=== PATIENT | male | born 1980 | race African-American/Black ===

== ENCOUNTER 2019-01-16 06:21 | Day surgery (SDC) | payer OTHER ==
[2019-01-16 07:27] LABS: ADD MAN DIFF? NO
[2019-01-16] MEDS: CEFAZOLIN 2 GM/50 ML (PMX) 50 ML IVPB (07:30)
[2019-01-16] MEDS: SOD CHLORIDE 0.9% 1,000 ML IV (07:30)
[2019-01-16 07:32] LABS: BASOPHILS % 0.4 % (0.0-2.0); EOSINOPHILS # 0.3 10^3/ul (0.0-0.5); EOSINOPHILS % 3.5 % (0.0-7.0); HEMATOCRIT 43.8 % (42.0-52.0); LYMPHOCYTES % 33.8 % (15.0-51.0); MEAN CORPUSCULAR HGB CONC 34.2 g/dl (32.0-37.0); MEAN CORPUSCULAR VOLUME 87.6 fl (82.0-101.0); MEAN PLATELET VOLUME 9.4 fl (7.4-10.4); MONOCYTE # 0.8 10^3/ul (0.3-0.9); MONOCYTES % 8.4 % (0.0-11.0); NEUTROPHIL # 4.8 10^3/ul (1.6-7.5); NEUTROPHILS % 53.5 % (39.0-77.0); PLATELET COUNT 294 10^3/UL (140-415); RED CELL DISTRIBUTION WIDTH 12.6 % (11.5-14.5)
[2019-01-16 07:32] LABS: WHITE BLOOD COUNT 8.9 10^3/ul (4.8-10.8)
[2019-01-16 07:49] LABS: ALANINE AMINOTRANSFERASE 40 IU/L (13-69); ALBUMIN 3.8 g/dl (3.3-4.9); ALBUMIN/GLOBULIN RATIO 1.31; ALKALINE PHOSPHATASE 101 IU/L (42-121); ANION GAP 7 (5-13); ASPARTATE AMINO TRANSFERASE 38 IU/L (15-46); BILIRUBIN,INDIRECT 0.5 mg/dl (0-1.1); BILIRUBIN,TOTAL 0.5 mg/dl (0.2-1.3); BLOOD UREA NITROGEN 11 mg/dl (7-20); CALCIUM 9.1 mg/dl (8.4-10.2); CARBON DIOXIDE 25 mmol/L (21-31); CHLORIDE 109 mmol/L (97-110); CREATININE 0.86 mg/dl (0.61-1.24); Estimated GFR > 60 mL/min (>60); GLUCOSE 93 mg/dl (70-220); SODIUM 141 mmol/L (135-144); TOTAL PROTEIN 6.7 g/dl (6.1-8.1)
[2019-01-16 07:51] LABS: PROTIME 12.3 Sec (11.9-14.9)
[2019-01-16 08:05] LABS: PARTIAL THROMBOPLASTIN TIME 36.4 Sec (23.0-35.0)
[2019-01-16] MEDS ORDERED: FENTAnyl 50 MCG/ML VIAL (09:20)
[2019-01-16] MEDS ORDERED: METOCLOPRAMIDE 10 MG INJ IV (09:30)
[2019-01-16] MEDS ORDERED: MEPERIDINE 25 MG INJ IV (09:30)
[2019-01-16] MEDS ORDERED: ONDANSETRON 4 MG INJ IV (09:30)
[2019-01-16] MEDS ORDERED: FENTAnyl 50 MCG/ML VIAL IV ×2 (09:30)
[2019-01-16] MEDS ORDERED: HYDROmorphONE 1 MG/5 ML IV SYRINGE IV ×3 (09:30)
[2019-01-16] MEDS ORDERED: ALBUTEROL 0.083% (NEB) 2.5 MG/3 ML AMP HHN (09:30)
[2019-01-16] MEDS ORDERED: DIPHENHYDRAMINE 50 MG INJ IV (09:30)
[2019-01-16] MEDS ORDERED: LIDOCAINE 100 MG SYRINGE (09:47)
[2019-01-16] MEDS ORDERED: SUGAMMADEX SODIUM 200 MG/2 ML VIAL IV (09:47)
[2019-01-16] MEDS ORDERED: PROPOFOL 20 ML (09:47)
[2019-01-16] MEDS ORDERED: SUCCINYLCHOLINE CHLORIDE 100 MG/5 ML SYG IV (09:47)
[2019-01-16] MEDS ORDERED: CEFAZOLIN 1 GM INJ (09:47)
[2019-01-16] MEDS ORDERED: ROCURONIUM 50 MG INJ (09:47)
[2019-01-16] MEDS: BUPIVACAINE 0.5%/EPI (SDV) 30 ML INJ (10:00)
== END 2019-01-16 11:51 | disposition home or self-care (01) ==
LOC: SDS 06:21
DX: L72.0 Epidermal cyst (principal); L90.5 Scar conditions and fibrosis of skin
CPT/HCPCS: 11422; 80053; 85025; 85610; 85730; 88307